=== PATIENT | female | born 1930 | race Caucasian/White ===

== ENCOUNTER → 2018-06-08 | Outpatient (CLI) | payer OTHER ==
[~2018-06-08] MED LIST: AMLODIPINE BESY10 MG PO; ASPIR 8181 MG PO; CITRACAL + BON1 EACH PO; COUMADIN 2 MG TA2 M1 PO; COZAAR100 MG PO; FLECAINIDE ACET50 M1 PO; GLUCOTROL5 MG PO; LASIX 20 MG TAB20 MG PO; LEVOTHYROXINE 0.1 MG PO; LOPRESSOR100 M1 PO; PRAVACHOL80 MG PO; VITAMIN D1000 UNI1 PO
== END ==
LOC: RAD 12:47
DX: E87.70 Fluid overload, unspecified (principal)

== ENCOUNTER → 2018-07-08 | Outpatient (CLI) | payer OTHER | LOC: RAD 11:09 | DX: J98.4 Other disorders of lung (principal); J98.11 Atelectasis ==

== ENCOUNTER → 2018-11-04 | Outpatient (CLI) | payer OTHER ==
[~2018-11-04] MED LIST changes: +DEMADEX20 MG PO; +SYNTHROID125 MC1 PO
== END ==
LOC: RAD 15:13
DX: J90 Pleural effusion, not elsewhere classified (principal)

== ENCOUNTER 2018-11-05 00:01 | Inpatient (IN) | payer OTHER ==
[2018-11-05] VITALS (69 sets, daily range): BP systolic 75–147; BP diastolic 36–74
[~2018-11-05] VITALS: Ht 160 cm; Wt 106.1 kg
--- NOTE | ~2018-11-05 | HC ---
[facility] [place] [address] CONSULTATION Name: PADMINI HERNANDEZ Room #: 240-P [facility] IN M.R.#: [id number] Admission: 11/05/18 Attend Phys: Sammy Martini MD Discharge: 11/06/18 Date of : 32 Report #: [id number] THIS REPORT FOR: //name// CC: Sammy Castro PULMONARY CONSULTATION REFERRING PHYSICIAN: Dr. Martini. HISTORY OF PRESENT ILLNESS: The patient is an 88-year-old white female who presents to the ED with weakness and dyspnea. A pulmonary consultation was requested. The patient has a long history of chronic kidney disease. For the past 3 weeks, the patient has noticed progressive weakness, edema. Over the past 3 days symptoms have become progressively worse where she presented to the ED. She also complained of chest pains radiating to her back. Presently she feels improved. She is tolerating the BiPAP. She had smoked in the past, but quit in 1970s. She denies any past history of chronic lung disease. PAST MEDICAL HISTORY: Notable for chronic kidney disease, new end-stage renal disease, diabetes mellitus type 2, hypertension, hyperthyroidism, spinal stenosis, chronic pain, status post spinal cord stimulator implantation 4 years ago, endometriosis, history of shingles, history of retinal hemorrhage in left eye, chronic permanent atrial fibrillation, on anticoagulation. PAST SURGICAL HISTORY: As mentioned above, abdominal aortic aneurysm repair, fistula placement to left upper extremity in anticipation for hemodialysis, cholecystectomy, bilateral cataract surgery. ALLERGIES: None to medications. HOME MEDICATIONS: Include Cozaar 50 mg p.o. daily, amlodipine 5 mg once a day, Demadex 10 mg once a day, Synthroid 125 mcg once a day, calcium supplements, flecainide 50 mg p.o. b.i.d., Pravachol 80 mg once a day, vitamin D supplements, Lopressor 100 mg once a day. FAMILY HISTORY: Noncontributory. SOCIAL HISTORY: The patient's tobacco history as mentioned above. She drinks socially. REVIEW OF SYSTEMS: As mentioned above, is also notable for dyspnea on exertion for the past several months. Otherwise, 10-point system review negative. [facility] [address] [place] [address] CONSULTATION Name: PADMINI HERNANDEZ Room #: 240-P [facility] IN M.R.#: [id number] Admission: 11/05/18 Attend Phys: Sammy Martini MD Discharge: 11/06/18 Date of : 32 Report #: [id number] PHYSICAL EXAMINATION: GENERAL: She is awake, alert, tolerating BiPAP. VITAL SIGNS: Temperature is 98 degrees Fahrenheit, pulse is 72, respiratory rate is 30, blood pressure 140/49 mmHg, saturation is 100%. HEENT: Normocephalic, atraumatic. NECK: Supple, without any lymphadenopathy or thyromegaly. CHEST: Breath sounds are fair due to poor effort, mild bilateral crackles are noted. No wheezes. CARDIOVASCULAR: Irregular rhythm. No murmurs or gallop. Pulses are 2+/4+ bilaterally. BREASTS: Deferred. ABDOMEN: Soft, nontender. No organomegaly or masses felt. GENITOURINARY: Deferred. RECTAL: Deferred. EXTREMITIES: There is no edema, cyanosis or clubbing. LABORATORY DATA: Portable chest x-ray shows increased vascular congestion, mild bilateral interstitial edema. Sodium 139, potassium 3.2, chloride 105, CO2 is 20, BUN is 69, creatinine is 3.6. Liver enzymes are mildly abnormal. WBC 14,500, hemoglobin 12.2, platelets are normal. INR is 3.3. Arterial blood gas revealed pH 7.29, pCO2 of 37, pO2 69 on 50% FiO2. IMPRESSION: 1. Acute hypoxic respiratory failure in this 88-year-old white female due to volume overload. Pneumonia is felt to be less likely. 2. Non-Q-wave myocardial infarction, left bundle-branch block. 3. Acute on chronic heart failure. The patient's previous echocardiogram shows preserved ejection fraction. 4. Chronic kidney disease, stage 5, may need hemodialysis with oliguria on this admission. 5. Permanent atrial fibrillation. 6. Diabetes mellitus type 2. 7. Hypertension. 8. Spinal stenosis, status post stimulator implantation. RECOMMENDATION: We will continue diuresis and/or dialysis as you are. DVT and GI prophylaxis is recommended. Thank you for this consultation. By: 1100 1444 Deven Cortes MD /nt
--- NOTE | ~2018-11-05 | HC ---
[facility] [place] [address] CONSULTATION Name: PADMINI HERNANDEZ Room #: 240-P ADM IN M.R.#: [id number] Admission: 11/05/18 Attend Phys: Sammy Martini MD Discharge: Date of : 32 Report #: [id number] THIS REPORT FOR: //name// CC: Sammy Castro DATE OF SERVICE: 11/05/2018 NEPHROLOGY CONSULTATION ATTENDING PHYSICIAN: Dr. Martini. REASON FOR CONSULTATION: Acute on chronic kidney disease. HISTORY OF PRESENT ILLNESS: The patient is well known to our service, followed by Dr. Sellers in our offices for many years. She has progressive CKD, baseline creatinine in the 3.5 range, has had a left arm fistula developing for over 2 years. She has had previous paroxysmal atrial fibrillation. She has had progressive symptoms over the last 2 weeks of shortness of air, poor appetite, orthopnea and chest heaviness. This has persisted. She finally came to the Emergency Room last evening, was found to have an elevated troponin initially she was in AFib, although she is back in sinus rhythm. She now is in ICU. She did not respond to IV Lasix and she is on BiPAP with acceptable oxygen saturation. HOME MEDICATIONS: Listed as losartan 50 mg daily, amlodipine 5 mg daily, torsemide 10 mg daily, levothyroxine 125 mcg daily, flecainide 50 mg b.i.d., Pravachol 80 mg daily, vitamin D, metoprolol tartrate 100 mg daily and Coumadin. PAST MEDICAL HISTORY: She has longstanding diabetes and hypertension, very little peripheral neuropathy and possibly some retinopathy as well. She has had previous cholecystectomy and hysterectomy. She has had chronic back pain and has a spinal cord stimulator. Apparently, there is some history of aortic aneurysm repair. I do not have the details and she has got left arm AV fistula. SOCIAL HISTORY: Very remote smoking history, lives at home with her . REVIEW OF SYSTEMS: GENERAL: She has been feeling ill. She has been weak. EYES: Her vision has been reasonably good worse in the left eye. ENT: Hearing okay, swallows okay. No mouth sores. ENDOCRINE: Positive for the diabetes and thyroid disease. RESPIRATORY: Easily short winded as mentioned. CARDIAC: She has had the chest swelling, the chest heaviness and intermittent palpitations. [facility] [address] [place] [address] CONSULTATION Name: PADMINI HERNANDEZ Room #: 240- ADM IN M.R.#: [id number] Admission: 11/05/18 Attend Phys: Sammy Martini MD Discharge: Date of : 32 Report #: [id number] GASTROINTESTINAL: Poor appetite without bloody stools. GENITOURINARY: Reasonably good stream without dysuria or hematuria. NEUROLOGIC: Leg weakness, which is chronic. Uses a wheelchair to get around. MUSCULOSKELETAL: No arthritis. PHYSICAL EXAMINATION: GENERAL: This is a somewhat ill-appearing patient seen in ICU on BiPAP and giving a good history. SKIN: Otherwise, unremarkable. SKELETAL: Rather obese. HEENT: Extraocular movements are full. No scleral icterus. Hearing and vision intact. Mucous membranes cannot be examined due to the BiPAP. NECK: Supple. Neck veins appear to be a bit distended. CHEST: Shows bibasilar crackles. HEART: Regular. ABDOMEN: Soft and nontender. EXTREMITIES: Showed a left arm AV fistula. She has 2+ peripheral edema. NEUROLOGIC: Moves all extremities. LABORATORY DATA: Urinalysis showed a concentrated specimen. Hemoglobin 12.2, white count 14.5. Sodium is 139, potassium 3.2, chloride 105, bicarbonate 20, BUN 69, creatinine 3.6. ASSESSMENT AND PLAN: 1. Acute on chronic kidney disease. She has had an acute coronary syndrome. She is volume overloaded and urination has not responded to IV Lasix. She will need dialysis with ultrafiltration and we will perform that in a relatively acute manor. 2. Acute coronary syndrome with elevated troponin. She will need a heart catheterization. We will try to dialyze her after that procedure if feasible. 3. Diabetes mellitus with triopathy. 4. 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 5. History of hypertension. 6. History of diabetes mellitus. By: 0902 1806 Alan Xiao MD /nt
[~2018-11-05 00:01] MED LIST changes: -DEMADEX20 MG PO; -SYNTHROID125 MC1 PO
[2018-11-05] MEDS ORDERED: SYNTHROID125 MC1 PO (00:23)
[2018-11-05] MEDS ORDERED: DEMADEX20 MG PO (00:23)
[2018-11-05 00:30] LABS: ABSOLUTE NEUTROPHILS 11.2 thou/uL (1.4-8.2); BASOPHILS 0.4 % (0.0-2.0); EOSINOPHILS 0.2 % (0.0-3.0); HEMATOCRIT 36.7 % (37.0-47.0); HEMOGLOBIN 12.2 gm/dL (12.0-15.0); LYMPHOCYTES 12.6 % (24.0-44.0); MCH 32.4 pg (26.0-34.0); MCHC 33.2 g/dL (28.0-37.0); MCV 97.6 fL (80.0-100.0); MONOCYTES 9.8 % (1.0-8.0); PLATELET COUNT 216 thou/uL (150-400); RBC 3.76 mil/uL (4.20-5.00); RDW 15.3 % (10.5-14.5); WBC 14.5 thou/uL (4.0-11.0)
[2018-11-05 00:39] LABS: CALCIUM 10.1 mg/dL (8.5-10.1); CREATININE 3.6 mg/dL (0.6-1.0); POTASSIUM 3.2 mmol/L (3.5-5.1)
[2018-11-05 00:43] LABS: URINE BILIRUBIN NEGATIVE (Negative); URINE BLOOD NEGATIVE (Negative); URINE CLARITY CLEAR; URINE COLOR YELLOW; URINE GLUCOSE-RANDOM* NEGATIVE (Negative); URINE KETONES NEGATIVE (Negative); URINE LEUKOCYTES-REFLEX NEGATIVE (Negative); URINE NITRITE-REFLEX NEGATIVE (Negative); URINE PROTEIN (DIPSTICK) NEGATIVE (Negative); URINE SPECIFIC GRAVITY >= 1.030 (1.005-1.035); URINE UROBILINOGEN 0.2 E.U./dl (0.2-1.0)
[2018-11-05 00:49] LABS: ALBUMIN 2.8 g/dL (3.4-5.0); MAGNESIUM 2.1 mg/dL (1.8-2.4); TOTAL BILIRUBIN 1.2 mg/dL (<0.1-1.0); TOTAL PROTEIN 6.8 g/dL (6.4-8.2)
[2018-11-05 00:50] LABS: TROPONIN-I 10.58 ng/mL (<0.06)
--- NOTE | 2018-11-05 00:53 | NUR ---
CRITICAL LAB VALUE OR TROPONIN=10.58 RECEIVED AND REPORTED TO PHYSICIAN DR BORJA. NEW ORDERS
[2018-11-05 01:38] LABS: APTT 33.3 Seconds (24.5-32.8); INR 3.3; PROTIME 34.1 Seconds (9.3-11.4)
--- NOTE | 2018-11-05 02:05 | NUR ---
RECEIVED CRITICAL LAB. TROPONIN=8.67 PHYSICIAN NOTIFIED.
[2018-11-05 02:40] LABS: BE(vivo) -8.2 mmol/L (-2 to +3); HCO3 17.6 mmol/L (22.0-26.0); PCO2 37.5 mmHg (35.0-45.0); PO2 69.9 mmHg (80.0-100.0); sO2 92.3 % (92.0-98.0)
--- NOTE | 2018-11-05 04:34 | NUR ---
ADMIT: Pt admitted to ICU room 240 at 0235. Pt alert, oriented, very SOA and dypsnic on 5 liter nasal canula. Pt immediately put on bipap FiO2 50%, 02/24. Pt breathing much easier since then. ABG's drawn and Adrian notified of critical pH. Consults called to cardiology, nephrology, and pulmonary. Monitor shows 1st AVB with BBB, rates in 70's. 3-4+ lower extremity edema. Left upper arm AV fistula patent; pt has not started hemodialysis yet but is aware she may need to start soon. Ndiaye cath placed on admit; pt is oliguric at this time.
--- NOTE | 2018-11-05 11:46 | 2DMMODE ---
[facility] [employer] [place] [address] 2 D/M-MODE ECHOCARDIOGRAM Name: PADMINI HERNANDEZ Room #: 240-P ADM IN M.R.#: [id number] Admission: 11/05/18 Attend Phys: Sammy Martini MD Discharge: Date of : 34 Date of Service: 11/05/18 1146 Report #: [id number] THIS REPORT FOR: //name// APPROVED REPORT Study performed: 11/05/2018 08:26:30 EXAM: Comprehensive 2D, Doppler, and color-flow Echocardiogram Patient Location: ICU Room #: 240 Status: routine BSA: 2.09 Rhythm: NSR Other Information Study Quality: Adequate Indications Congestive Heart Failure Pulmonary Hypertension Diabetes Dyspnea Chest Pain Hypertension/HDD 2D Dimensions RVDd: 29.49 mm IVSd: 6.93 (7-11mm) LVOT Diam: 20.53 (18-24mm) LVDd: 62.14 mm PWd: 7.98 (7-11mm) Ascending Ao: 27.26 (22-36mm) LVDs: 52.16 (25-40mm) Aortic Root: 27.70 mm IVC: 22.00 mm Volumes Left Atrial Volume (Systole) Single Plane 4CH: 60.22 mL Single Plane 2CH: 76.66 mL LA ESV Index: 35.00 mL/m2 Aortic Valve AoV Peak Lucio.: 1.73 m/s AO Peak Gr.: 11.92 mmHg LVOT Max P.05 mmHg LVOT Max V: 0.87 m/s KESHAV Vmax: 1.67 cm2 [facility] [address] [address] 2 D/M-MODE ECHOCARDIOGRAM Name: PADMINI HERNANDEZ Room #: 240-P [facility] IN ..#: [id number] Admission: 11/05/18 Attend Phys: Sammy Martini MD Discharge: Date of : 32 Date of Service: 11/05/18 1146 Report #: [id number] Mitral Valve E/A Ratio: 1.9 MV Decel. Time: 206.19 ms MV E Max Lucio.: 1.37 m/s MV A Lucio.: 0.71 m/s MV PHT: 59.79 ms IVRT: 41.52 ms Pulmonary Valve PV Peak Lucio.: 1.07 m/s PV Peak Gr.: 4.57 mmHg Pulmonary Vein P Vein S: 0.31 m/s P Vein A: 0.29 m/s P Vein D: 0.52 m/s P Vein A Dur.: 92.3 msec P Vein S/D Ratio: 0.60 Tricuspid Valve TR Peak Lucio.: 3.90 m/s TR Peak Gr.: 60.73 mmHg PA Pressure: 71.00 mmHg Left Ventricle Left ventricle is dilated. There is normal left ventricular wall thickness. Left ventricular ejection fraction is moderately decreased. LVEF is 35-40%. Hypokinesis of distal anterior wall, distal septum and apex Severe diastolic dysfunction is present (restrictive filling). Right Ventricle The right ventricle is normal size. The right ventricular systolic function is normal. Atria Left atrium is dilated. The right atrium size is normal. Aortic Valve Aortic valve is calcified. Mild aortic regurgitation. There is no aortic valvular stenosis. Mitral Valve Moderate mitral annular calcification Moderately severe mitral regurgitation. No evidence of mitral valve stenosis. Tricuspid Valve The tricuspid valve is normal in structure. There is mild tricuspid regurgitation. The right atrial pressure is estimated at 70mmHg. [facility] [address] [place] [address] 2 D/M-MODE ECHOCARDIOGRAM Name: PADMINI HERNANDEZ Room #: 240-P ADM IN M.R.#: [id number] Admission: 11/05/18 Attend Phys: Sammy Martini MD Discharge: Date of : 32 Date of Service: 11/05/18 1146 Report #: [id number] There is severe pulmonary hypertension. Pulmonic Valve The pulmonary valve is normal in structure. Mild pulmonic regurgitation. Great Vessels The aortic root is normal in size. IVC is dilated and collapses <50% with inspiration. Pericardium Trace pericardial effusion. <Conclusion> Left ventricular ejection fraction is moderately decreased. LVEF is 35-40%. Hypokinesis of distal anterior wall, distal septum and apex Severe diastolic dysfunction is present (restrictive filling). Left atrium is dilated. Aortic valve is calcified. Mild aortic regurgitation, no stenosis. Moderate mitral annular calcification Moderately severe mitral regurgitation. There is mild tricuspid regurgitation. Pulmonary artery pressure estimated at 70mmHg. Trace pericardial effusion. <ELECTRONICALLY SIGNED> By: Walker Prieto MD, FACC 11/05/18 1146 1146 1146 Walker Prieto MD, FACC /INF
--- NOTE | 2018-11-05 15:08 | NUR ---
met with patient who is on BIPAP, alerted will call her dtr. Patient also rec dialysis for first time. Patient admits with CHF, elevated troponin. Sp with dtr Sherry. Patient resides in home with spouse. Have been in home 57 years. Dtr reports planned recent move to [facility] while remodel bathroom to accomadate grab bars and make a walk in shower. She reports her father does some cooking, cleaning and driving. Dtr reports they were just working with Dr Pepe (PCP) for a rolator walker for home. Discussed with dtr role of peterson and planned dc either HH, Post acute care and will assist with equipt in home as needed. Patient with [employer] insurance.
--- NOTE | 2018-11-05 18:09 | EKG ---
[address] [address] ELECTROCARDIOGRAM REPORT Name: PADMINI HERNANDEZ Room #: 240-P ADM IN M.R.#: [id number] Admission: 11/05/18 Attend Phys: Sammy Martini MD Discharge: Date of : 32 Report #: [id number] THIS REPORT FOR: //name// [facility] ED Test Date: 2018-11-05 Test Time: 00:06:15 Pat Name: PADMINI HERNANDEZ Department: Room: 240 Gender: F Grain Trimmer: steven : 1930 Requested By: Matthew Carter Order Number: [id number] MD: Walker Prieto Measurements Intervals [place] Rate: 77 P: 55 ME: 227 QRS: 45 QRSD: 132 T: 266 QT: 386 QTc: 437 Interpretive Statements Sinus rhythm Atrial premature complex Prolonged ME interval Left bundle branch block Compared to ECG 08/13/2005 13:39:37 Atrial premature complex(es) now present First degree AV block now present Left bundle-branch block now present Electronically Signed On 11-05-2018 18:09:39 CDT by Walker Prieto [email or web address] <ELECTRONICALLY SIGNED> By: Walker rPieto MD, [facility] 11/05/18 1809 0006 Walker Prieto MD, [facility] /EPI
--- NOTE | 2018-11-05 18:15 | EKG ---
[address] [place] [address] ELECTROCARDIOGRAM REPORT Name: PADMINI HERNANDEZ Room #: 240-P ADM IN M.R.#: [id number] Admission: 11/05/18 Attend Phys: Sammy Martini MD Discharge: Date of : 32 Report #: [id number] THIS REPORT FOR: //name// [facility] Test Date: 2018-11-05 Test Time: 08:07:11 Pat Name: PADMINI HERNANDEZ Department: Room: 240 P Gender: F Order Desk Clerk: DAVID : 1930 Requested By: Alan Gutierrez Order Number: [id number] MD: Walker Prieto Measurements Intervals [place] Rate: 73 P: 71 MT: 222 QRS: 54 QRSD: 106 T: 253 QT: 397 QTc: 438 Interpretive Statements Sinus rhythm Prolonged MT interval Diffuse ST and T wave abnormality Compared to ECG 08/13/2005 13:39:37 Atrial premature complexes are no longer present Electronically Signed On 11-05-2018 18:15:26 CDT by Walker Prieto [email or web address] <ELECTRONICALLY SIGNED> By: Walker Prieto MD, [facility] 11/05/18 6922 [phone] Walker Prieto MD, [facility] /EPI
--- NOTE | 2018-11-05 18:28 | NUR ---
ASSUMED CARE OF PT AT 0645. PLAN TO START HD TODAY PER DR KNAPP. HD NURSE HAD ISSUES WITH ACCESS BLEEDING, ONLY 1L TAKEN OFF. PRN ATIVAN ORDERED FOR ANXIETY. PT HAVING LOOSE BM ON BEDPAN. SULEIMAN NASAL CANULA POST HD.
[2018-11-05 22:06] LABS: HEP B SURFACE Ab(ANTI-HBS Non Reactive (()); HEPATITIS B SURFACE AG Negative (Negative)
[2018-11-06] VITALS (13 sets, daily range): BP systolic 93–128; BP diastolic 16–66
[2018-11-06 05:42] LABS: HEMATOCRIT 34.4 % (37.0-47.0); HEMOGLOBIN 11.6 gm/dL (12.0-15.0); MCH 32.5 pg (26.0-34.0); MCHC 33.7 g/dL (28.0-37.0); MCV 96.4 fL (80.0-100.0); RBC 3.57 mil/uL (4.20-5.00); RDW 15.4 % (10.5-14.5); WBC 19.6 thou/uL (4.0-11.0)
--- NOTE | 2018-11-06 05:54 | NUR ---
END OF SHIFT SUMMARY: Slow progress toward goals. Pt not as SOA when at rest, able to titrate Bipap FiO2 down to 40% and able to take breaks using 8 L HFC. Remains anuric/oliguric. Left AV fistula remains patent. Pt restless and anxious at times, given Ativan x1 for sleep. Monitor remains sinus rhythm with 1st degree AVB.
[2018-11-06 06:02] LABS: CALCIUM 9.2 mg/dL (8.5-10.1); CREATININE 3.4 mg/dL (0.6-1.0)
[2018-11-06 06:04] LABS: POTASSIUM 2.9 mmol/L (3.5-5.1)
[2018-11-06 06:10] LABS: ALBUMIN 2.3 g/dL (3.4-5.0); CREATININE 3.5 mg/dL (0.6-1.0); PHOSPHORUS 3.4 mg/dL (2.5-4.9)
[2018-11-06 06:19] LABS: POTASSIUM 2.9 mmol/L (3.5-5.1); TROPONIN-I 65.14 ng/mL (<0.06)
[2018-11-06 07:27] LABS: PROTIME 48.7 Seconds (9.3-11.4)
[2018-11-06 07:30] LABS: INR 4.7
--- NOTE | 2018-11-06 10:55 | NUR ---
CONSULTED TO PLACE A PICC FOR A PATIENT NEEDING ADDITIONAL ACCESS. CONFIRMED DR. KNAPP/NEPHROLOGY WANTED A PICC IN THE RIGHT ARM AND NOT A CENTRAL LINE. THIS PATIENT HAS A LEFT ARM FISTULA, ON BIPAP AND UNABLE TO LAY FLAT FOR CENTRAL LINE PLACEMENT. CONSENT NOTED. THE PROCEDURE WELL BENIFITS AND RISKS FOR INFECTION AND DVT WERE DISCUSSED WITH THE PATIENT AND SHE VERBALIZED UNDERSTANDING. THE RUE BRACHIAL WAS WIDLEY PATENT. A #5F TRIPLE LUMEN POWER PICC WAS PLACED PER HOSPITAL POLICY AFTER A BEDSIDE TIMOUT WAS COMPLETED. THE PICC WAS TRIMMED TO 43CM AND ADVANCED WITHOUT DIFFICULTY. A STAT CHEST XRAY WAS ORDERED FOR CONFIRMATION
--- NOTE | 2018-11-06 14:55 | NUR ---
RECIEVED CARE OF PATIENT AT 0700, PATIENT WENT INTO A-FIB. DR. AGUILAR NOTIFIED. HAD DIFFICULTY BREATHING, PLACED ON BIPAP. PATIENT CODED, NOTIFIED DR. SAHNI, DR. BYNUM, DR. AGUILAR, DR. LEONARDO, DR. MOSLEY AT THE BEDSIDE. PATIENT PRONOUNCED AT 1204, POST-MORTUM CARE GIVEN, FAMILY NOTIFIED. TRANSPORTED BY SECURITY.
--- NOTE | 2018-11-07 10:42 | EKG ---
[address] [place] [address] ELECTROCARDIOGRAM REPORT Name: PADMINI HERNANDEZ Room #: 240-P [facility] IN M.R.#: [id number] Admission: 11/05/18 Attend Phys: Sammy Martini MD Discharge: 11/06/18 Date of : 32 Report #: [id number] THIS REPORT FOR: //name// [facility] Test Date: 2018-11-06 Test Time: 08:19:56 Pat Name: PADMINI HERNANDEZ Department: Room: 240 P Gender: F Director Medicaid: LAZARUS : 1930 Requested By: Sammy Martini Order Number: [id number] MD: Walker Prieto Measurements Intervals [place] Rate: 88 P: 0 KS: 248 QRS: 12 QRSD: 93 T: 242 QT: 350 QTc: 424 Interpretive Statements Sinus rhythm Prolonged [place] interval Poor R wave progression Repol abnrm, severe global ischemia (LM/MVD) Compared to ECG 11/05/2018 08:07:11 No significant change was found Electronically Signed On 11-07-2018 10:41:47 CDT by Walker Prieto [email or web address] <ELECTRONICALLY SIGNED> By: Walker Prieto MD, [facility] 11/07/18 1041 8 8 Walker Prieto MD, [facility] /EPI
== END 2018-11-06 12:06 ==
LOC: ER 00:01 → EROBS 01:14 → ICU 01:14
PROVIDERS: Emergency Medicine; Internal Medicine Nephrology; Internal Medicine Pulmonary Disease; Nurse Practitioner Adult Health; Nurse Practitioner Family; ADMIT Hospitalist
DX: I21.4 Non-ST elevation (NSTEMI) myocardial infarction (principal); N18.6 End stage renal disease; J96.21 Acute and chronic respiratory failure with hypoxia; I50.33 Acute on chronic diastolic (congestive) heart failure; N17.9 Acute kidney failure, unspecified; D68.59 Other primary thrombophilia; I13.2 Hypertensive heart and chronic kidney disease with heart failure and with stage 5 chronic kidney disease, or end stage renal disease; E87.2 Acidosis; E03.9 Hypothyroidism, unspecified; E78.00 Pure hypercholesterolemia, unspecified; E87.6 Hypokalemia; M54.5 Low back pain; I48.2 Chronic atrial fibrillation; I24.9 Acute ischemic heart disease, unspecified; E11.22 Type 2 diabetes mellitus with diabetic chronic kidney disease; G89.29 Other chronic pain; M48.00 Spinal stenosis, site unspecified; I44.7 Left bundle-branch block, unspecified; I46.9 Cardiac arrest, cause unspecified; E87.70 Fluid overload, unspecified; Z90.49 Acquired absence of other specified parts of digestive tract; Z79.01 Long term (current) use of anticoagulants; Z98.42 Cataract extraction status, left eye; Z98.41 Cataract extraction status, right eye; Z87.891 Personal history of nicotine dependence; Z79.82 Long term (current) use of aspirin; Z79.899 Other long term (current) drug therapy; Z90.710 Acquired absence of both cervix and uterus
CPT/HCPCS: 10203; 27000; 32100